=== PATIENT | female | born 1940 | race Caucasian/White ===

== ENCOUNTER 2025-01-05 20:39 | Inpatient (IN) | payer OTHER ==
[~2025-01-05] VITALS: Ht 149.9 cm; Wt 60.2 kg
[2025-01-05 21:27] LABS: Hematocrit 40.7 % (36.0-46.0); Hemoglobin 13.8 g/dL (12.2-16.2); Mean Corpuscular Hemoglobin 31.7 pg (28.0-32.0); Mean Corpuscular Volume 93.8 fL (80.0-100.0); Nucleated Red Blood Cells % 0.1 %
--- NOTE | 2025-01-05 21:28 | ED.PDOC ---
SOB-HPI HPI Comments HPI: 84-year-old female who came to ER via EMS for shortness of breath. Patient has been having flu-like symptoms since June 2024. Has been having productive cough with yellowish sputum, congestion, shortness of breath, on/ off fever. Patient has been given several antibiotic but offered no releif. Patient currently on any antibiotics. Was saturating 89% on room air, with a SBP of 214. Patient states she took her lisinopril today Past Medical History: Hypertension, CVA with right-sided residual Surgical History: Left hip surgery, sleep apnea surgery, tonsillectomy Family History: Denies Personal And Social History: Denies HPI: Poor Historian. Patient is on aspirin. History of strokes. Respiratory symptoms since June of the seizure. Found to be hypoxemic at home 89% at room air. Patient does not use oxygen at home. Past Medical History: Past Surgical History: REVIEW OF SYSTEMS: CONSTITUTIONAL: Denies acute: fever, diaphoresis, chills, generalized weakness. HEAD: Denies acute: headache, photophobia Eyes: Denies acute: Double vision, vision loss, eye pain, eye discharge. EARS: Denies acute: tinnitus, hearing loss, ear discharge, ear pain, THROAT: Denies acute: sore throat, swelling, difficulty swallowing , pain with swallowing, change in voice. NECK: Denies acute: neck pain, neck swelling, stiff neck. HEART: Denies acute : chest pain, palpitations, LUNGS: Denies acute: wheezing, hemoptysis ABDOMEN: Denies acute: abdominal pain, Nausea, Vomiting, diarrhea, melena , hematemesis, hematochezia SKIN: Denies acute: rash, redness, lesions, itchiness. EXTREMITIES: Denies acute: calf pain, numbness, tingling, weakness, denies pain in extremity. Denies acute: Low back pain. Neuro: Denies acute: focal neurological deficit, motor or sensory focal neurological deficit, tremors, seizure like activity, confusion, dizziness, change in mental status, loss of bowel or bladder function, cauda equina like symptoms. : Denies acute: dysuria, hematuria, flank pain, increase in urinary frequency. PSYCH: Denies acute: hallucination, suicidal ideation, homicidal ideation. FEMALE: Denies acute: abnormal vaginal bleeding, foul odor, unusual discharge. PHYSICAL EXAM: General: ----mild----acute distress, awake and alert. Head: normocephalic, atraumatic. No raccoon's eyes, no murray sign. Neck: supple, trachea is midline, no swelling. Throat: Normal phonation. Eyes:, no erythema, no purulent discharge, no proptosis, no icterus. Heart: regular rate, regular rhythm, no significant murmur appreciated. Lungs: no apparent respiratory distress, Able to speak in full sentences. No wheezing, no rhonchi, no crackles. No stridors Clear to auscultation bilaterally. Abdomen: non tender to palpation, non distended, soft, no guarding, no rebound, + bowel sounds. Neuro: Awake, Alert, oriented to name, self, situation, follows commands GCS=15. Speech is normal. Skin: no petechia, no purpura, no cyanosis, non-pale, not jaundice. Lower extremities: --no - Pitting edema no deformity, no focal swelling, no calf TTP. Makes eye contact. moves all four extremities. Face: no apparent facial droop. Ambulating in the ED independently. ED COURSE: DISCLAIMER: This medical document was created using an electronic medical record system with voice recognition software and computerized dictation system. Although this document has been carefully reviewed, there might still be some phonetic and typographical errors. Occasional wrong-word or "sound-alike" substitutions may have occurred due to the inherent limitations of voice recognition software. These areas are purely typographical due to imperfections of the software programs and do not reflect any compromise in the patient's medical care. Please read the chart carefully and recognize, using context, where these substitutions have occurred. 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 Was a procedure done?: No Differential Dx Differential Diagnosis: Asthma, Bronchitis, Pneumonia, Respiratory Distress, Other (DDx include ACS, unstable angina, anxiety, PE, pneumothroax, neoplasm, cardiac ischemia, COPD, asthma, CHF, pleural effusion, tobacco abuse, pneumonia, hypoxia, hypercapnia, anemia., infection/sepsis., pulmonary edema. Asthma, Cardiac tamponade, infection.) X-Ray, Labs, Meds, VS Vital Signs Date Time Temp Pulse Resp B/P (MAP) Pulse Ox O2 Delivery O2 Flow Rate FiO2 01/05/25 23:20 93 Nasal Cannula* 4 36 01/05/25 23:00 72 16 121/88 (99) 99 01/05/25 23:00 97.9 74 18 121/88 99 4.0 97.9 01/05/25 22:51 146/59 01/05/25 21:30 65 17 93 Nasal Cannula* 4 36 01/05/25 21:30 97.7 65 17 166/69 (101) 93 97.7 01/05/25 21:28 72 01/05/25 20:49 72 01/05/25 20:39 97.7 72 98 211/82 98 97.7 Lab Test 01/05/25 22:32 01/05/25 21:52 01/05/25 21:10 Range/Units Influenza Type A Antigen Negative Negative Influenza Type B Antigen Negative Negative SARS-CoV-2 Antigen (Rapid) Negative NEGATIVE Troponin I High Sensitivity 3 L 4 </=34 ng/L White Blood Count 9.3 4.4-10.8 10^3/uL Red Blood Count 4.34 4.0-5.20 10^6/uL Hemoglobin 13.8 12.2-16.2 g/dL Hematocrit 40.7 36.0-46.0 % Mean Corpuscular Volume 93.8 80.0-100.0 fL Mean Corpuscular Hemoglobin 31.7 28.0-32.0 pg Mean Corpuscular Hemoglobin Concent 33.8 32.0-36.0 g/dL Red Cell Distribution Width 12.8 11.8-14.3 % Platelet Count 302 140-450 10^3/uL Mean Platelet Volume 7.2 6.9-10.8 fL Neutrophils (%) (Auto) 69.8 37.0-80.0 % Lymphocytes (%) (Auto) 12.2 10.0-50.0 % Monocytes (%) (Auto) 5.7 0.0-12.0 % Eosinophils (%) (Auto) 11.2 H 0.0-7.0 % Basophils (%) (Auto) 1.1 0.0-2.0 % Neutrophils # (Auto) 6.5 1.6-8.6 10 ^3/uL Lymphocytes # (Auto) 1.1 0.4-5.4 10 ^3/uL Monocytes # (Auto) 0.5 0-1.3 10 ^3/uL Eosinophils # (Auto) 1.0 H 0-0.8 10 ^3/uL Basophils # (Auto) 0.1 0-0.2 10 ^3/uL Nucleated Red Blood Cells 0.1 % D-Dimer, Quantitative 1.15 H 0.0-0.49 mg/L FEU Sodium Level 140 136-145 mmol/L Potassium Level 3.4 L 3.5-5.1 mmol/L Chloride Level 102 98-107 mmol/L Carbon Dioxide Level 28 20-31 mmol/L Anion Gap 10 5-15 Blood Urea Nitrogen 12 9-23 mg/dL Creatinine 0.85 0.550-1.02 mg/dL Glomerular Filtration Rate Calc 68 >90 mL/min BUN/Creatinine Ratio 14.1 10.0-20.0 Serum Glucose 102 74-106 mg/dL Lactic Acid Level 0.8 0.4-2.0 mmol/L Calcium Level 9.2 8.7-10.4 mg/dL Total Bilirubin 0.4 0.2-1.0 mg/dL Aspartate Amino Transferase (AST) 26 13-40 U/L Alanine Aminotransferase (ALT) 23 7-40 U/L Alkaline Phosphatase 96 46-116 U/L B-Type Natriuretic Peptide 35.86 0-100 pg/mL Total Protein 7.3 5.7-8.2 g/dL Albumin 4.3 3.2-4.8 g/dL Current Medications Medications (Trade) Dose Ordered Sig/Kai Route Start Time Stop Time Status Last Admin Ceftriaxone Sodium 50 ml @ 100 mls/hr ONCE ONCE IV 01/05/25 22:15 01/05/25 22:44 DC 01/05/25 22:57 Aspirin 162 mg ONCE ONCE PO 01/06/25 00:45 01/06/25 00:54 DC 01/06/25 01:37 Potassium Chloride (Klor-Con Tablet) 20 meq ONCE ONCE PO 01/06/25 00:45 01/06/25 00:54 DC 01/06/25 01:[address] [address] Ph: [phone] DIAGNOSTIC IMAGING Diagnostic Imaging Report : [id number] Signed PATIENT: CAIN JONES ACCT: [id number] UNIT: [id number] : 1940 LOC: ER ROOM / BED: / AGE / SEX: 84 / F ADM STATUS: REG ER SERVICE 04 ORDERING PHYSICIAN: BRITNEY SHAY DO PROCEDURE(s): CXRP - CHEST PORTABLE REASON: sob ORDER NUMBER(s): [id number], ACCESSION NUMBER(s): [id number] CHEST RADIOGRAPH Indication: sob Technique: Single frontal view of the chest was obtained COMPARISON: None FINDINGS: Lungs and pleural spaces are clear apart from mild bibasilar atelectasis. Cardiac silhouette and smith are within normal limits. Bones and soft tissues demonstrate no significant abnormality. IMPRESSION: No acute disease. ATED BY: CRUZ JONES MD DICTATED DATE/TIME: 01/05/252251 SIGNED BY: CRUZ JONES MD SIGNED DATE/TIME: 01/05/252251 CC: [place] [id number] Ph: [phone] DIAGNOSTIC IMAGING Diagnostic Imaging Report : [id number] Signed PATIENT: CAIN JONES ACCT: [id number] UNIT: [id number] : 1940 LOC: OVERFLOW ROOM / BED: 1016-ERT / A AGE / SEX: 84 / F ADM STATUS: ADM IN SERVICE 2356 ORDERING PHYSICIAN: BRITNEY SHAY DO PROCEDURE(s): CTACH - CT ANGIO CHEST CONTRAST REASON: sob/cough ORDER NUMBER(s): [id number], ACCESSION NUMBER(s): [id number] CTA Chest with intravenous contrast INDICATION: sob/cough COMPARISON: XY CHEST PORTABLE on DOS: 01/05/25 TECHNIQUE: Multidetector spiral CTA of the chest was performed of the chest with intravenous contrast. PULMONARY ANGIOGRAPHY PROTOCOL was utilized using a bolus- tracking technique centered on the main pulmonary artery. Axial, coronal and sagittal multiplanar and MIP reformats were performed. Radiation Dose : 1. Chest: CTDI volume is 17.74 mGy. Dose-length product is 478.21 mGy*cm The dose indicators for CT are the volume Computed Tomography (CT) Dose Index (CTDIvol) and the Dose Length Product (DLP), and are measured in units of mGy and mGy-cm, respectively. These indicators are not patient dose, but values generated from the CT scanner acquisition factors. The report includes radiation exposure data for exposures received during this examination. Findings: Pulmonary artery: No pulmonary embolism Lower neck: Normal thyroid. Lungs: No focal consolidation, pleural effusion or pneumothorax. Mild diffuse interlobular septal thickening with hazy ground-glass opacity throughout both lungs. Heart/Vascular Structures: Normal heart size. No pericardial effusion. Coronary calcifications. Lymph Nodes: No adenopathy Pleura: No pleural effusion or significant pneumothorax. Musculoskeletal: No acute osseous abnormality. Soft tissues: Normal. Upper abdomen: Limited portions of the upper abdomen are unremarkable. Previous cholecystectomy. IMPRESSION: No pulmonary embolism. Mild fluid overload. ATED BY: CRUZ JONES MD DICTATED DATE/TIME: 01/06/25131 SIGNED BY: CRUZ JONES MD SIGNED DATE/TIME: 01/06/25131 CC: Time of 1ST Reevaluation: 21:24 Reevaluation 1ST: Unchanged Patient Education/Counseling: Diagnosis, Treatment Family Education/Counseling: No Family Present Comments MDM: patient presented with the above HPI.---dyspnea---workup was initiated. patient was found with the above mentioned diagnosis. the following medications were ordered: please refer to order lists of meds and tests obtained by myself Dr. Shay. Patient ED course and VS have been stabilized. Patient has been reassessed in the ED and remained in a stable condition. Pertinent incidental findings were discussed with the patient and/or family. Patient/family voices understanding and is agreeable with plan. Patient has been observed in the ED adequate length of time to insure improvement/stability. Escalation of care considered: Consideration of escalation to observation or admission Rule out ACS. Rule out PE. Rule out infection Patient was ADMITTED to the medicine team for further evaluation and treatment of their presentation. All the reports of any imaging studies that were ordered by myself were reviewed by myself. SEPSIS Sepsis Screen Date sepsis recognized/suspect: Jan 05, 2025 Time Sepsis recognized/suspect: 2038 Recent Procedure: No On Antibiotic Therapy: No Respiratory Rate >20: No Heart Rate >90: No Temp<36 C (96.8 F) or >38.3 C: No SBP <90 or MAP <65 mmHG: No New Acute Mental Status Change: No Is the patient on CPAP, BIPAP,: No Physician Orders Electrocardigram (01/05/25 20:59) Bailer Operators Supervisor (01/05/25 ) Urinalysis (01/05/25 21:05) Chest Portable (01/05/25 21:05) Ct Angio Chest Contrast (01/05/25 23:56) Complete Blood Count (01/06/25 04:00) Comprehensive Metabolic Panel (01/06/25 04:00) Aspirin Tablet (01/06/25 10:00) Albuterol Medneb (Ventolin Medneb) (01/06/25 00:45) Ipratropium Medneb (Atrovent Medneb) (01/06/25 00:45) Hydralazine Injection (Apresoline Inject (01/06/25 00:45) Allergies (01/06/25 00:44) Code Status (01/06/25 00:44) Sodium Chloride Lock (Saline Lock Ns) (01/06/25 06:00) Oxygen Per Hour (01/06/25 00:44) Hydrocodone-Acet 5/325mg Tab ([place] 5/32 (01/06/25 00:45) Ondansetron Hcl (Zofran) (01/06/25 00:45) Docusate Sodium Capsule (Colace Capsule) (01/06/25 00:45) Fall Risk Precautions In Place QSHIFT (01/06/25 00:44) Complete Blood Count (01/07/25 04:00) Comprehensive Metabolic Panel (01/07/25 04:00) Cardiac Diet-2gna,Lofat,Lochol (01/06/25 Breakfast) Condition: Serious (01/06/25 00:44) Acetaminophen Tablet (Tylenol Tablet) (01/06/25 00:45) Maintain Bed Rest (01/06/25 00:44) Sequential Compression Device (01/06/25 ) Vital Signs Date Time Temp Pulse Resp B/P (MAP) Pulse Ox O2 Delivery O2 Flow Rate FiO2 01/05/25 23:20 93 Nasal Cannula* 4 36 01/05/25 23:00 72 16 121/88 (99) 99 01/05/25 23:00 97.9 74 18 121/88 99 4.0 97.9 01/05/25 22:51 146/59 01/05/25 21:30 65 17 93 Nasal Cannula* 4 36 01/05/25 21:30 97.7 65 17 166/69 (101) 93 97.7 01/05/25 21:28 72 01/05/25 20:49 72 01/05/25 20:39 97.7 72 98 211/82 98 97.7 Laboratory Tests Test 01/05/25 21:10 Lactic Acid Level 0.8 mmol/L (0.4-2.0) White Blood Count 9.3 10^3/uL (4.4-10.8) Medications Medications Dose Ordered Sig/Kai Route Start Time Stop Time Status Last Admin Dose Admin Aspirin 162 mg ONCE ONCE PO 01/06/25 00:45 01/06/25 00:54 DC 01/06/25 01:37 Ceftriaxone Sodium 50 ml @ 100 mls/hr ONCE ONCE IV 01/05/25 22:15 01/05/25 22:44 DC 01/05/25 22:57 Potassium Chloride 20 meq ONCE ONCE PO 01/06/25 00:45 01/06/25 00:54 DC 01/06/25 01:37 Departure 1 Departure Time of Disposition: 22:06 Impression: Primary Impression: Hypoxemia Additional Impressions: Acute respiratory distress URI (upper respiratory infection) Hypertensive crisis Disposition: ADMITTED INPATIENT Admit to: Tele Condition: Guarded Discharged With: Self Critical Care Note Critical Care Time?: Yes (35 min-critical care time only) Stability Stability form required: No Heart Score Heart Score: Heart Score Response (Comments) Value History Moderate Suspicious 1 EKG Normal 0 Age >65 2 Risk Factors 1 or 2 risk factors 1 Troponin Normal limit 0 Total 4 I personally scribed for BRITNEY SHAY DO ([email or web address]) on 01/05/25 at 21:28. Electronically submitted by Kyle Betancourt ([email or web address]). I personally scribed for BRITNEY SHAY DO ([email or web address]) on 01/05/25 at 23:41. Electronically submitted by Kyle Betancourt ([email or web address]). I personally scribed for BRITNEY SHAY DO ([email or web address]) on 01/06/25 at 02:09. Electronically submitted by Kyle Betancourt ([email or web address]). BRITNEY SHAY DO Jan 05, 2025 21:28
[2025-01-05 21:30] VITALS: PULSE 65; RESP 17; O2SAT 93
[2025-01-05 21:39] LABS: Alanine Aminotransferase 23 U/L (7-40); Albumin 4.3 g/dL (3.2-4.8); Alkaline Phosphatase 96 U/L (46-116); Anion Gap 10 (5-15); BUN/Creatinine Ratio 14.1 (10.0-20.0); Bilirubin, Total 0.4 mg/dL (0.2-1.0); Blood Urea Nitrogen 12 mg/dL (9-23); Calcium 9.2 mg/dL (8.7-10.4); Carbon Dioxide 28 mmol/L (20-31); Chloride 102 mmol/L (98-107); Glucose 102 mg/dL (74-106); Potassium 3.4 mmol/L (3.5-5.1); Sodium 140 mmol/L (136-145); Total Protein 7.3 g/dL (5.7-8.2)
[2025-01-05] MEDS: hydrALAZINE HCL 20 MG/ML VL IV ONE (22:51)
--- NOTE | 2025-01-05 22:54 | DVH ---
CHEST RADIOGRAPH Indication: sob Technique: Single frontal view of the chest was obtained COMPARISON: None FINDINGS: Lungs and pleural spaces are clear apart from mild bibasilar atelectasis. Cardiac silhouette and smith are within normal limits. Bones and soft tissues demonstrate no significant abnormality. IMPRESSION: No acute disease.
[2025-01-05 23:00] VITALS: BP 121/88; PULSE 74; RESP 18; TEMP 97.9; O2SAT 99
[2025-01-05 23:16] LABS: COVID19 ANTIGEN SOFIA FIA NEGATIVE (NEGATIVE)
[2025-01-05 23:20] VITALS: PULSE 65; RESP 17; O2SAT 93
[2025-01-06] VITALS (10 sets, daily range): BP systolic 129–178; BP diastolic 58–96; PULSE 66–101; RESP 16–20; TEMP 97.7–98.4; O2SAT 95–100
[2025-01-06] MEDS ORDERED: ACETAMINOPHEN 325 MG TAB PO PRN (00:45)
[2025-01-06] MEDS ORDERED: ONDANSETRON HCL 4 MG/2 ML VIAL IV PRN (00:45)
--- NOTE | 2025-01-06 00:52 | DVHHP2 ---
History of Present Illness Reason for Visit: Acute respiratory distress History of Present Illness The patient is a 84-year-old female with past medical history of hypertension and CVA with left-sided residual presented to [facility] ED with complaint of shortness of breaths. As reported, patient has been having flu-like symptoms since June 2024. Patient continued to feel symptoms today associated with productive cough with yellowish sputum, congestion, shortness of breath, and intermittent fever. Patient has been given several antibiotic but with no relief. Patient was seen and evaluated in the ED, laboratory data shows WBC 9.3, platelets 302, sodium 140, potassium 3.4, BUN 12, creatinine 0.85, GFR 68, glucose 102, calcium 9.2, troponin 4, BNP 35.86, D-dimer 1.15, blood pressure 211/82 trending down to 146/59, heart rate 72, temperature 97.7 F, O2 saturation 93% on oxygen. CT angiography revealing mild fluid overload, no pulmonary embolism. Please see medication orders section in the computer. On my assessment, patient denied chest pain, no headache, dizziness, diaphoresis, currently on oxygen, no diarrhea, nausea, vomiting, fever, no chills. Patient was admitted for further evaluation and medical management. Past Medical History Hypertension, CVA, Past Surgical History Tonsillectomy, Left hip surgery, sleep apnea surgery Family History Reviewed, noncontributory to the management of this case. Past Social History The patient lives at home, denies smoking, alcohol or illicit drugs abuse. Review of Systems Constitutional: Yes: Weakness; No: Fever, Chills, Sweats, Malaise, Other Eyes: No: Pain, Vision change, Conjunctivae inflammation, Eyelid inflammation, Other, Redness ENT: No: Ear pain, Ear discharge, Nose pain, Nose discharge, Nose congestion, Mouth pain, Mouth swelling, Throat pain, Throat swelling, Other Respiratory: Shortness of breath; No: Cough, Dry, SOB with excertion, Wheezing, Hemoptysis, Pleuritic Pain, Sputum, Wheezing, Other Cardiovascular: No: Chest Pain, Palpitations, Orthopnea, Paroxysmal Noc. Dyspnea, Edema, Lt Headedness, Other Gastrointestinal: No: Nausea, Vomiting, Abdominal Pain, Diarrhea, Constipation, Melena, Hematochezia, Other Genitourinary: No Dysuria, No Frequency, No Incontinence, No Hematuria, No Retention, No Other Musculoskeletal: No: other, neck pain, shoulder pain, arm pain, back pain, hand pain, leg pain, foot pain Skin: No: Rash, Lesions, Jaundice, Bruising, Other Neurological: No: Weakness, Numbness, Incoordination, Change in speech, Confusion, Seizures, Other Allergies: Coded Allergies: Sulfa Antibiotics (Verified Allergy, Unknown, 01/05/25) Medications Current Medications Medications Dose Ordered Sig/Kai Route Start Time Stop Time Status Last Admin Dose Admin Aspirin 81 mg DAILY PO 01/06/25 10:00 UNV Albuterol 2.5 mg Q4HPRN PRN NEB 01/06/25 00:45 UNV Ipratropium [place] 0.5 mg Q4HPRN PRN NEB 01/06/25 00:45 UNV Hydralazine HCl 10 mg Q6HP PRN IV 01/06/25 00:45 UNV Sodium Chloride 10 ml Q8HR IV 01/06/25 06:00 UNV Acetaminophen/ Hydrocodone Bitart 1 tab Q4HP PRN PO 01/06/25 00:45 UNV Ondansetron HCl 4 mg Q4HP PRN IV 01/06/25 00:45 UNV Docusate Sodium 100 mg BIDPRN PRN PO 01/06/25 00:45 UNV Acetaminophen 650 mg Q6HP PRN PO 01/06/25 00:45 UNV Exam Vital Signs Vital Signs Date Time Temp Pulse Resp B/P (MAP) Pulse Ox O2 Delivery O2 Flow Rate FiO2 01/05/25 23:20 93 Nasal Cannula* 4 36 01/05/25 23:00 72 16 121/88 (99) 01/05/25 21:30 97.7 97.7 General Appearance: Alert, Oriented X3, Cooperative, No acute distress HEENT: Atraumatic, PERRLA, EOMI, Mucous membr. moist/pink Respiratory: Normal air movement Cardiovascular: Regular rate, Normal S1, Normal S2, No murmurs Abdominal: Normal bowel sounds, Soft, No tenderness, No hepatospenomegaly, No masses Extremities: No clubbing, No cyanosis, No edema, Normal pulses, No tenderness/swelling Skin: No rashes, No significant lesion Neuro: Normal speech, Normal tone, Sensation intact, Cranial nerves 3-12 NL, Reflexes 2+, Other (Generalized weakness) Psych/Mental Status: Mental status NL, Mood NL Labs/Xrays Labs Test 01/05/25 22:32 01/05/25 21:52 01/05/25 21:10 Range/Units Influenza Type A Antigen Negative Negative Influenza Type B Antigen Negative Negative SARS-CoV-2 Antigen (Rapid) Negative NEGATIVE Troponin I High Sensitivity 3 L </=34 ng/L White Blood Count 9.3 4.4-10.8 10^3/uL Red Blood Count 4.34 4.0-5.20 10^6/uL Hemoglobin 13.8 12.2-16.2 g/dL Hematocrit 40.7 36.0-46.0 % Mean Corpuscular Volume 93.8 80.0-100.0 fL Mean Corpuscular Hemoglobin 31.7 28.0-32.0 pg Mean Corpuscular Hemoglobin Concent 33.8 32.0-36.0 g/dL Red Cell Distribution Width 12.8 11.8-14.3 % Platelet Count 302 140-450 10^3/uL Mean Platelet Volume 7.2 6.9-10.8 fL Neutrophils (%) (Auto) 69.8 37.0-80.0 % Lymphocytes (%) (Auto) 12.2 10.0-50.0 % Monocytes (%) (Auto) 5.7 0.0-12.0 % Eosinophils (%) (Auto) 11.2 H 0.0-7.0 % Basophils (%) (Auto) 1.1 0.0-2.0 % Neutrophils # (Auto) 6.5 1.6-8.6 10 ^3/uL Lymphocytes # (Auto) 1.1 0.4-5.4 10 ^3/uL Monocytes # (Auto) 0.5 0-1.3 10 ^3/uL Eosinophils # (Auto) 1.0 H 0-0.8 10 ^3/uL Basophils # (Auto) 0.1 0-0.2 10 ^3/uL Nucleated Red Blood Cells 0.1 % D-Dimer, Quantitative 1.15 H 0.0-0.49 mg/L FEU Sodium Level 140 136-145 mmol/L Potassium Level 3.4 L 3.5-5.1 mmol/L Chloride Level 102 98-107 mmol/L Carbon Dioxide Level 28 20-31 mmol/L Anion Gap 10 5-15 Blood Urea Nitrogen 12 9-23 mg/dL Creatinine 0.85 0.550-1.02 mg/dL Glomerular Filtration Rate Calc 68 >90 mL/min BUN/Creatinine Ratio 14.1 10.0-20.0 Serum Glucose 102 74-106 mg/dL Lactic Acid Level 0.8 0.4-2.0 mmol/L Calcium Level 9.2 8.7-10.4 mg/dL Total Bilirubin 0.4 0.2-1.0 mg/dL Aspartate Amino Transferase (AST) 26 13-40 U/L Alanine Aminotransferase (ALT) 23 7-40 U/L Alkaline Phosphatase 96 46-116 U/L B-Type Natriuretic Peptide 35.86 0-100 pg/mL Total Protein 7.3 5.7-8.2 g/dL Albumin 4.3 3.2-4.8 g/dL PATIENT: CAIN JONES ACCT: [id number] UNIT: [id number] : 1940 LOC: OVERFLOW ROOM / BED: [address] [place] [address] AGE / SEX: 84 / F ADM STATUS: ADM IN SERVICE [id number] ORDERING PHYSICIAN: BRITNEY SHAY DO PROCEDURE(s): CTACH - CT ANGIO CHEST CONTRAST REASON: sob/cough ORDER NUMBER(s): [id number], ACCESSION NUMBER(s): [id number] CTA Chest with intravenous contrast INDICATION: sob/cough COMPARISON: XY CHEST PORTABLE on DOS: 01/05/25 TECHNIQUE: Multidetector spiral CTA of the chest was performed of the chest with intravenous contrast. PULMONARY ANGIOGRAPHY PROTOCOL was utilized using a bolus- tracking technique centered on the main pulmonary artery. Axial, coronal and sagittal multiplanar and MIP reformats were performed. Radiation Dose: 1. Chest: CTDI volume is 17.74 mGy. Dose-length product is 478.21 mGy*cm The dose indicators for CT are the volume Computed Tomography (CT) Dose Index (CTDIvol) and the Dose Length Product (DLP), and are measured in units of mGy and mGy-cm, respectively. These indicators are not patient dose, but values generated from the CT scanner acquisition factors. The report includes radiation exposure data for exposures received during this examination. Findings: Pulmonary artery: No pulmonary embolism Lower neck: Normal thyroid. Lungs: No focal consolidation, pleural effusion or pneumothorax. Mild diffuse interlobular septal thickening with hazy ground-glass opacity throughout both lungs. Heart/Vascular Structures: Normal heart size. No pericardial effusion. Coronary calcifications. Lymph Nodes: No adenopathy Pleura: No pleural effusion or significant pneumothorax. Musculoskeletal: No acute osseous abnormality. Soft tissues: Normal. Upper abdomen: Limited portions of the upper abdomen are unremarkable. Previous cholecystectomy. IMPRESSION: No pulmonary embolism. Mild fluid overload. ORDERING PHYSICIAN: BRITNEY SHAY DO PROCEDURE(s): CXRP - CHEST PORTABLE REASON: sob ORDER NUMBER(s): [id number], ACCESSION NUMBER(s): [id number] CHEST RADIOGRAPH Indication: sob Technique: Single frontal view of the chest was obtained COMPARISON: None FINDINGS: Lungs and pleural spaces are clear apart from mild bibasilar atelectasis. Cardiac silhouette and smith are within normal limits. Bones and soft tissues demonstrate no significant abnormality. IMPRESSION: No acute disease. SEPSIS Sepsis Screen Date sepsis recognized/suspect: Jan 05, 2025 Time Sepsis recognized/suspect: 2129 Recent Procedure: No On Antibiotic Therapy: No Respiratory Rate >20: No Heart Rate >90: No Temp<36 C (96.8 F) or >38.3 C: No SBP <90 or MAP <65 mmHG: No New Acute Mental Status Change: No Is the patient on CPAP, BIPAP,: No Physician Orders Electrocardigram (01/05/25 20:59) Elderly Companion (01/05/25 ) Urinalysis (01/05/25 21:05) Chest Portable (01/05/25 21:05) Ct Angio Chest Contrast (01/05/25 23:56) Complete Blood Count (01/06/25 04:00) Comprehensive Metabolic Panel (01/06/25 04:00) Aspirin Tablet (01/06/25 10:00) Aspirin Tablet (01/06/25 00:45) Potassium Er Tablet (Klor-Con Tablet) (01/06/25 00:45) Albuterol Medneb (Ventolin Medneb) (01/06/25 00:45) Ipratropium Medneb (Atrovent Medneb) (01/06/25 00:45) Hydralazine Injection (Apresoline Inject (01/06/25 00:45) Allergies (01/06/25 00:44) Code Status (01/06/25 00:44) Sodium Chloride Lock (Saline Lock Ns) (01/06/25 06:00) Oxygen Per Hour (01/06/25 00:44) Hydrocodone-Acet 5/325mg Tab (Jay 5/32 (01/06/25 00:45) Ondansetron Hcl (Zofran) (01/06/25 00:45) Docusate Sodium Capsule (Colace Capsule) (01/06/25 00:45) Fall Risk Precautions In Place QSHIFT (01/06/25 00:44) Complete Blood Count (01/07/25 04:00) Comprehensive Metabolic Panel (01/07/25 04:00) Cardiac Diet-2gna,Lofat,Lochol (01/06/25 Breakfast) Condition: Serious (01/06/25 00:44) Acetaminophen Tablet (Tylenol Tablet) (01/06/25 00:45) Maintain Bed Rest (01/06/25 00:44) Sequential Compression Device (01/06/25 ) Admit (01/06/25 00:50) Nitroglycerin Sublingual (Ntrostat Subli (01/06/25 01:00) Morphine Sulfate Injection (01/06/25 01:00) Stat Ekg For Chest Pain (01/06/25 00:50) Notify Md Of Changes From Base (01/06/25 00:50) Director Of Rotc For 24 Hours (01/06/25 00:50) Emergency Dysrhythmia Protocol (01/06/25 00:50) Rhythm Strips Once Every Shift (01/06/25 00:50) Oxygen By Nasal Cannula (01/06/25 00:50) Vital Signs Date Time Temp Pulse Resp B/P (MAP) Pulse Ox O2 Delivery O2 Flow Rate FiO2 01/05/25 23:20 93 Nasal Cannula* 4 36 01/05/25 23:00 72 16 121/88 (99) 99 01/05/25 22:51 146/59 01/05/25 21:30 65 17 93 Nasal Cannula* 4 36 01/05/25 21:30 97.7 65 17 166/69 (101) 93 97.7 01/05/25 21:28 72 01/05/25 20:49 72 01/05/25 20:39 97.7 72 98 211/82 98 97.7 Laboratory Tests Test 01/05/25 21:10 Lactic Acid Level 0.8 mmol/L (0.4-2.0) White Blood Count 9.3 10^3/uL (4.4-10.8) Medications Medications Dose Ordered Sig/Kai Route Start Time Stop Time Status Last Admin Dose Admin Ceftriaxone Sodium 50 ml @ 100 mls/hr ONCE ONCE IV 01/05/25 22:15 01/05/25 22:44 DC 01/05/25 22:57 100 MLS/HR Assessment/Plan Assessment/Plan Acute respiratory distress Hypoxemia Hypertensive crisis URI (upper respiratory infection) Generalized weakness Plan 1. Admit to telemetry unit 2. Breathing treatment 3. Pain control management 4. IV antibiotic management 5. Management of fluids and electrolytes 6. Consultation for hospitalist 7. Diagnostic test CT angiography 8. DVT prophylaxis-on SCDs 9. Repeat labs CBC, CMP in a.m. 10. Home medication reviewed and reconciled 11. Continue with current medical management 12. Treatment plan discussed with patient and RN. Patient verbalized understanding. Plan discussed with: Patient, Other (RN) My Orders Orders - ILENE MARTINEZ DNP Procedure Category Date Status Time Complete Blood Count LAB 01/06/25 Logged 04:00 Comprehensive LAB 01/06/25 Logged Metabolic Panel 04:00 Aspirin Tablet PHA 01/06/25 Logged 10:00 Aspirin Tablet PHA 01/06/25 Logged 00:45 Potassium Er Tablet PHA 01/06/25 Logged (Klor-Con Tablet) 00:45 Albuterol Medneb PHA 01/06/25 Logged (Ventolin Medneb) 00:45 Ipratropium Medneb PHA 01/06/25 Logged (Atrovent Medneb) 00:45 Hydralazine Injection PHA 01/06/25 Logged (Apresoline Inject 00:45 Allergies FABRICE 01/06/25 In Process 00:44 Code Status CODE 01/06/25 Transmitted 00:44 Sodium Chloride Lock PHA 01/06/25 Logged (Saline Lock Ns) 06:00 Oxygen Per Hour RT 01/06/25 Transmitted 00:44 Hydrocodone-Acet PHA 01/06/25 Logged 5/325mg Tab (Jay 00:45 Ondansetron Hcl PHA 01/06/25 Logged (Zofran) 00:45 Docusate Sodium PHA 01/06/25 Logged Capsule (Colace 00:45 Fall Risk Precautions [facility] 01/06/[address] 00:44 Complete Blood Count LAB 01/07/25 Verified 04:00 Comprehensive LAB 01/07/25 Verified Metabolic Panel 04:00 Cardiac DIET 01/06/25 Transmitted Diet-2gna,Lofat,Lochol Breakfast Condition: Serious [facility] 01/06/25 In Process 00:44 Acetaminophen Tablet [facility] 01/06/25 Logged (Tylenol Tablet) 00:45 Maintain Bed Rest [facility] 01/06/25 In Process 00:44 Sequential [facility] 01/06/25 In Process Compression Device Admit ADMIT 01/06/25 Verified 00:50 Nitroglycerin [facility] 01/06/25 Verified Sublingual (Ntrostat 01:00 Morphine Sulfate [facility] 01/06/25 Verified Injection 01:00 Stat Ekg For Chest [facility] 01/06/25 Verified Pain 00:50 Notify Md Of Changes [facility] 01/06/25 Verified From Base 00:50 Director Of Rotc For [facility] 01/06/25 Verified 24 Hours 00:50 Emergency Dysrhythmia [facility] 01/06/25 Verified Protocol 00:50 Rhythm Strips Once [facility] 01/06/25 Verified Every Shift 00:50 Oxygen By Nasal RT 01/06/25 Verified Cannula 00:50 Problem List: (1) Acute respiratory distress (2) Hypoxemia (3) Hypertensive crisis (4) URI (upper respiratory infection) (5) Generalized weakness Date of Service: Jan 06, 2025 Billing Provider: ILENE MARTINEZ DNP Common Visit Codes: [id number] INP/OBS CARE (HIGH) ILENE MARTINEZ DNP Jan 06, 2025 00:52
[2025-01-06] MEDS ORDERED: NITROGLYCERIN 0.4 MG SL TAB SL PRN (01:00)
[2025-01-06] MEDS ORDERED: MORPHINE SULFATE INJ 2 MG/ml SYRG IV PRN (01:00)
[2025-01-06] MEDS: IOHEXOL 350 MG/ML 100ML IJ ONE (01:07)
--- NOTE | 2025-01-06 01:35 | DVH ---
CTA Chest with intravenous contrast INDICATION: sob/cough COMPARISON: XY CHEST PORTABLE on DOS: 01/05/25 TECHNIQUE: Multidetector spiral CTA of the chest was performed of the chest with intravenous contrast. PULMONARY ANGIOGRAPHY PROTOCOL was utilized using a bolus- tracking technique centered on the main pulmonary artery. Axial, coronal and sagittal multiplanar and MIP reformats were performed. Radiation Dose : 1. Chest: CTDI volume is 17.74 mGy. Dose-length product is 478.21 mGy*cm The dose indicators for CT are the volume Computed Tomography (CT) Dose Index (CTDIvol) and the Dose Length Product (DLP), and are measured in units of mGy and mGy-cm, respectively. These indicators are not patient dose, but values generated from the CT scanner acquisition factors. The report includes radiation exposure data for exposures received during this examination. Findings: Pulmonary artery: No pulmonary embolism Lower neck: Normal thyroid. Lungs: No focal consolidation, pleural effusion or pneumothorax. Mild diffuse interlobular septal thickening with hazy ground-glass opacity throughout both lungs. Heart/Vascular Structures: Normal heart size. No pericardial effusion. Coronary calcifications. Lymph Nodes: No adenopathy Pleura: No pleural effusion or significant pneumothorax. Musculoskeletal: No acute osseous abnormality. Soft tissues: Normal. Upper abdomen: Limited portions of the upper abdomen are unremarkable. Previous cholecystectomy. IMPRESSION: No pulmonary embolism. Mild fluid overload.
[2025-01-06] MEDS: POTASSIUM CHL 20 Meq TABLET PO ONE (01:37)
[2025-01-06 04:25] LABS: Hematocrit 37.6 % (36.0-46.0); Hemoglobin 13.0 g/dL (12.2-16.2); Mean Corpuscular Hemoglobin 32.0 pg (28.0-32.0); Mean Corpuscular Volume 92.8 fL (80.0-100.0); Nucleated Red Blood Cells % 0.1 %
[2025-01-06 04:45] LABS: Alanine Aminotransferase 18 U/L (7-40); Albumin 3.7 g/dL (3.2-4.8); Alkaline Phosphatase 86 U/L (46-116); Anion Gap 9 (5-15); BUN/Creatinine Ratio 12.3 (10.0-20.0); Blood Urea Nitrogen 10 mg/dL (9-23); Calcium 8.9 mg/dL (8.7-10.4); Carbon Dioxide 27 mmol/L (20-31); Chloride 102 mmol/L (98-107); Glucose 91 mg/dL (74-106); Sodium 138 mmol/L (136-145); Total Protein 6.3 g/dL (5.7-8.2)
[2025-01-06 04:46] LABS: Bilirubin, Total 0.5 mg/dL (0.2-1.0)
[2025-01-06 04:54] LABS: Potassium 3.4 mmol/L (3.5-5.1)
[2025-01-06] MEDS: hydrALAZINE HCL 20 MG/ML VL IV PRN (06:07)
[2025-01-06] MEDS: SODIUM CHLOR 0.9% PF (SALINE LOCK) 10ML VIAL/SYR IV SCH (06:07)
[2025-01-06] MEDS: ALBUTEROL SULF 2.5 MG/0.5ML(0.5%) NEB SOLN NEB PRN (06:29)
[2025-01-06] MEDS: IPRATROPIUM BROM 0.5 MG/2.5ML INH SOL NEB PRN (06:29)
[2025-01-06] MEDS ORDERED: ASPI-543 PO (06:43)
[2025-01-06] MEDS ORDERED: LISIPOW XX (06:43)
--- NOTE | 2025-01-06 06:54 | ECG ---
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
[2025-01-06] MEDS ORDERED: LISI10TA34 PO (10:36)
--- NOTE | 2025-01-06 16:11 | DVHPN2 ---
Eyes: No Pain, No Vision change, No Conjunctivae inflammation, No Eyelid inflammation, No Other, No Redness ENT: No Ear pain, No Ear discharge, No Nose pain, No Nose discharge, No Nose congestion, No Mouth pain, No Mouth swelling, No Throat pain, No Throat swelling, No Other Cardiovascular: No Chest Pain, No Palpitations, No Orthopnea, No Paroxysmal Noc. Dyspnea, No Edema, No Lt Headedness, No Other Respiratory: No Cough, No Dry; Shortness of breath; No SOB with excertion, No Wheezing, No Hemoptysis, No Pleuritic Pain, No Sputum, No Other Gastrointestinal: No Nausea, No Vomiting, No Abdominal Pain, No Diarrhea, No Constipation, No Melena, No Hematochezia, No Other Genitourinary: No Dysuria, No Frequency, No Incontinence, No Hematuria, No Retention, No Other Musculoskeletal: No other, No neck pain, No shoulder pain, No arm pain, No back pain, No hand pain, No leg pain, No foot pain Skin: No Rash, No Lesions, No Jaundice, No Bruising, No Other Objective Vitals Vital Signs Date Time Temp Pulse Resp B/P (MAP) Pulse Ox O2 Delivery O2 Flow Rate FiO2 01/06/25 13:00 97.8 78 18 140/75 (96) 100 97.8 01/06/25 10:00 Nasal Cannula 4.0 01/06/25 10:00 36 Intake/Output Intake and Output 01/06/25 07:00 Intake Total 50 ml Balance 50 ml Intake IV Total 50 ml Medications Current Medications Medications Dose Ordered Sig/Kai Route Start Time Stop Time Status Last Admin Dose Admin Aspirin 81 mg DAILY PO 01/06/25 10:00 01/06/25 10:46 81 MG Albuterol 2.5 mg Q4HPRN PRN NEB 01/06/25 00:45 01/06/25 06:29 2.5 MG Ipratropium [place] 0.5 mg Q4HPRN PRN NEB 01/06/25 00:45 01/06/25 06:29 0.5 MG Hydralazine HCl 10 mg Q6HP PRN IV 01/06/25 00:45 01/06/25 06:07 10 MG Sodium Chloride 10 ml Q8HR IV 01/06/25 06:00 01/06/25 06:07 10 ML Acetaminophen/ Hydrocodone Bitart 1 tab Q4HP PRN PO 01/06/25 00:45 Ondansetron HCl 4 mg Q4HP PRN IV 01/06/25 00:45 Docusate Sodium 100 mg BIDPRN PRN PO 01/06/25 00:45 Acetaminophen 650 mg Q6HP PRN PO 01/06/25 00:45 Nitroglycerin 0.4 mg Q5MINP PRN SL 01/06/25 01:00 Morphine Sulfate 2 mg Q30M PRN IV 01/06/25 01:00 Ceftriaxone Sodium 50 ml @ 100 mls/hr DAILY@2100 IV 01/06/25 21:00 Laboratory Results Laboratory Tests 01/06/25 03:36 Chemistry Test 01/05/25 21:10 01/06/25 03:36 Albumin 4.3 g/dL (3.2-4.8) 3.7 g/dL (3.2-4.8) Calcium Level 9.2 mg/dL (8.7-10.4) 8.9 mg/dL (8.7-10.4) Total Protein 7.3 g/dL (5.7-8.2) 6.3 g/dL (5.7-8.2) Coagulation Test 01/05/25 21:10 D-Dimer, Quantitative 1.15 mg/L FEU (0.0-0.49) H Cardiac Markers Test 01/05/25 21:10 B-Type Natriuretic Peptide 35.86 pg/mL (0-100) LFT Test 01/05/25 21:10 01/06/25 03:36 Alanine Aminotransferase (ALT) 23 U/L (7-40) 18 U/L (7-40) Alkaline Phosphatase 96 U/L (46-116) 86 U/L (46-116) Aspartate Amino Transferase (AST) 26 U/L (13-40) 20 U/L (13-40) Total Bilirubin 0.4 mg/dL (0.2-1.0) 0.5 mg/dL (0.2-1.0) Assessment/Plan My Orders Orders - JACOBO CORONEL MD Procedure Category Date Status Time Echo 2d Mode Cardiac US 01/06/25 Logged DOP 15:44 JACOBO CORONEL MD Jan 06, 2025 16:11
[2025-01-06 22:48] LABS: Urine Protein, UAD Negative (Negative)
[2025-01-07] VITALS (13 sets, daily range): BP systolic 106–157; BP diastolic 61–84; PULSE 68–110; RESP 16–20; TEMP 97.6–98.8; O2SAT 93–100
[2025-01-07] MEDS: HYDROcodone-ACET 5/325MG TAB PO PRN (00:55)
[2025-01-07 06:25] LABS: Hematocrit 37.2 % (36.0-46.0); Hemoglobin 12.6 g/dL (12.2-16.2); Mean Corpuscular Hemoglobin 31.5 pg (28.0-32.0); Mean Corpuscular Volume 93.3 fL (80.0-100.0)
[2025-01-07 06:41] LABS: Alanine Aminotransferase 15 U/L (7-40); Albumin 3.7 g/dL (3.2-4.8); Alkaline Phosphatase 86 U/L (46-116); Anion Gap 9 (5-15); BUN/Creatinine Ratio 15.3 (10.0-20.0); Blood Urea Nitrogen 13 mg/dL (9-23); Calcium 9.1 mg/dL (8.7-10.4); Carbon Dioxide 28 mmol/L (20-31); Chloride 104 mmol/L (98-107); Glucose 96 mg/dL (74-106); Potassium 3.6 mmol/L (3.5-5.1); Sodium 141 mmol/L (136-145); Total Protein 6.4 g/dL (5.7-8.2)
[2025-01-07 06:42] LABS: Bilirubin, Total 0.3 mg/dL (0.2-1.0)
[2025-01-07 08:25] LABS: Total Cells Counted 100.0 (100)
--- NOTE | 2025-01-07 18:02 | DVHPN2 ---
Subjective Patient complaining of shortness of breath. Also complaining of yellowish phlegm . Changes from previous H/P or p: No Changes Eyes: No Pain, No Vision change, No Conjunctivae inflammation, No Eyelid inflammation, No Other, No Redness ENT: No Ear pain, No Ear discharge, No Nose pain, No Nose discharge, No Nose congestion, No Mouth pain, No Mouth swelling, No Throat pain, No Throat swelling, No Other Cardiovascular: No Chest Pain, No Palpitations, No Orthopnea, No Paroxysmal Noc. Dyspnea, No Edema, No Lt Headedness, No Other Respiratory: No Cough, No Dry; Shortness of breath; No SOB with excertion, No Wheezing, No Hemoptysis, No Pleuritic Pain, No Sputum, No Other Gastrointestinal: No Nausea, No Vomiting, No Abdominal Pain, No Diarrhea, No Constipation, No Melena, No Hematochezia, No Other Genitourinary: No Dysuria, No Frequency, No Incontinence, No Hematuria, No Retention, No Other Musculoskeletal: No other, No neck pain, No shoulder pain, No arm pain, No back pain, No hand pain, No leg pain, No foot pain Skin: No Rash, No Lesions, No Jaundice, No Bruising, No Other Objective Vitals Vital Signs Date Time Temp Pulse Resp B/P (MAP) Pulse Ox O2 Delivery O2 Flow Rate FiO2 01/07/25 17:00 98.8 73 18 146/65 (92) 95 98.8 01/07/25 14:51 Nasal Cannula 2.0 01/07/25 14:51 28 Intake/Output Intake and Output 01/07/25 07:00 Intake Total 914 ml Balance 914 ml Intake Oral 864 ml IV Total 50 ml # Voids 5 Exam HEENT pupils are reactive Neck is supple CV is S1-S2 regular rate and rhythm Respiratory diminished breath sound bases GI positive bowel sounds Extremities no pedal edema [employer] no motor deficit Medications Current Medications Medications Dose Ordered Sig/Kai Route Start Time Stop Time Status Last Admin Dose Admin Aspirin 81 mg DAILY PO 01/06/25 10:00 01/07/25 09:26 81 MG Albuterol 2.5 mg Q4HPRN PRN NEB 01/06/25 00:45 01/07/25 14:51 2.5 MG Ipratropium [place] 0.5 mg Q4HPRN PRN NEB 01/06/25 00:45 01/07/25 14:51 0.5 MG Hydralazine HCl 10 mg Q6HP PRN IV 01/06/25 00:45 01/06/25 06:07 10 MG Sodium Chloride 10 ml Q8HR IV 01/06/25 06:00 01/07/25 04:49 10 ML Acetaminophen/ Hydrocodone Bitart 1 tab Q4HP PRN PO 01/06/25 00:45 01/07/25 00:55 1 TAB Ondansetron HCl 4 mg Q4HP PRN IV 01/06/25 00:45 Docusate Sodium 100 mg BIDPRN PRN PO 01/06/25 00:45 Acetaminophen 650 mg Q6HP PRN PO 01/06/25 00:45 Nitroglycerin 0.4 mg Q5MINP PRN SL 01/06/25 01:00 Morphine Sulfate 2 mg Q30M PRN IV 01/06/25 01:00 Ceftriaxone Sodium 50 ml @ 100 mls/hr DAILY@2100 IV 01/06/25 21:00 01/06/25 20:23 100 MLS/HR Laboratory Results Laboratory Tests 01/07/25 05:27 Chemistry Test 01/07/25 05:27 Albumin 3.7 g/dL (3.2-4.8) Calcium Level 9.1 mg/dL (8.7-10.4) Total Protein 6.4 g/dL (5.7-8.2) LFT Test 01/07/25 05:27 Alanine Aminotransferase (ALT) 15 U/L (7-40) Alkaline Phosphatase 86 U/L (46-116) Aspartate Amino Transferase (AST) 20 U/L (13-40) Total Bilirubin 0.3 mg/dL (0.2-1.0) Urinalysis Test 01/06/25 22:15 Urine Color Yellow (Yellow) Urine Clarity Clear (Clear) Urine pH 6.0 (5.0-9.0) Urine Specific [place] 1.033 (1.001-1.035) Urine Protein Negative (Negative) Urine Ketones Negative (Negative) Urine Blood Negative /uL (Negative) Urine Nitrite Negative (Negative) Urine Bilirubin Negative (Negative) Urine Urobilinogen Normal mg/dL (Negative) Urine Leukocyte Esterase Negative /uL (Negative) Urine RBC 1 /hpf (0 - 4) Urine Microscopic WBC 4 /HPF (0-5) Urine Squamous Epithelial Cells Few /hpf (<5) Urine Bacteria None seen /hpf (None Seen) Urine Mucus Few (None Seen) Urine Glucose Normal mg/dL (Normal) Assessment/Plan Assessment/Plan 84-year-old female with known history of hypertension, previous history of CVA presented to the hospital with increasing shortness of breath and yellowish phlegm found to have next 1. Acute hypoxic respiratory failure 2. Acute bronchitis 3. Fluid overload with CT evidence, we will get 2D echo cardiology consultation next 4. Hypertension 5. Previous cystocele -sputum for Gram stain and culture, 2D echo, cardiology consultation, add azithromycin, we will assess for home oxygen requirement upon discharge. Plan discussed with: Patient My Orders Orders - JACOBO CORONEL MD Procedure Category Date Status Time * Cardiology Consult CONS 01/07/25 Transmitted 17:58 Respiratory Culture NAVEED 01/07/25 Logged W/ Gs 17:59 Azithromycin 500mg/ PHA 01/07/25 Verified 250ml (Zithromax 50 18:00 Date of Service: Jan 07, 2025 Billing Provider: JACOBO CORONEL MD Common Visit Codes: [id number] INP/OBS CARE(HIGH) JACOBO CORONEL MD Jan 07, 2025 18:02
[2025-01-07] MEDS: AZITHROMYCIN 500MG/ 250ML 250 ML IV SCH (18:51)
[2025-01-08] VITALS (12 sets, daily range): BP systolic 116–162; BP diastolic 69–91; PULSE 65–87; RESP 16–18; TEMP 97.6–98.9; O2SAT 92–99
[2025-01-08] MEDS: LISINOPRIL 5 MG TAB PO SCH (10:00)
--- NOTE | 2025-01-08 11:00 | DVHSR ---
APPROVED REPORT EXAM: Two-dimensional and M-mode echocardiogram with Doppler and color Doppler. Blood Pressure: 139/84 mmHg INDICATION SOB DIMENSIONS LVDd 3.9 (3.8-5.7cm) LA (2D) 3.4 (1.9-4.0cm) Aortic Root 2.7 (2.0-3.7cm) LVDs 2.8 (2.5-4.0cm) LA (MM) (1.9-4.0cm) Aortic Cusp Exc 1.6 (1.5-2.0cm) EF (%) 55.0 (55-70%) Rt. Atrium 3.0 (1.9-4.0cm) Asc. Aorta cm IVSd 1.1 (0.7-1.1cm) RV (D) (1.8-2.4cm) PWd 1.1 (0.7-1.1cm) Mitral Valve Mitral Mitral Stenosis E wave 0.90m/s MV Mean GR. mmHg A wave 1.40m/s MV Peak GR. mmHg E/A ratio 0.6 2D MVA cm2 Aortic Valve Aortic Valve Aortic Stenosis V1 1.00m/s AO Mean GR. 4mmHg V2 1.30m/s AO Peak GR. 7mmHg LVOT Diameter 2.1 (1.8-2.4cm) Doppler MICHAEL 2.66cm2 AI P 1/2 Time 485.63ms Pulmonic Valve V2 0.80m/s Conclusion EF >55% MILD AV SCLEROSIS MID AI
--- NOTE | 2025-01-08 11:28 | DVHCONRES ---
Date Seen: Jan 08, 2025 Resident Creating Document: RODOLFOIVISJerilynKEATON RESIDENT Referring Physician Dr Gregg CASTILLO Reason for Consultation Shortness of breath History of Present Illness Amie is a 84 y o female with PMH of HTN and CVA presents with difficulty breathing and phlegm buildup that has been progressively worsening over the past 3-4 weeks. She reports that her symptoms have been "really hard-heavy" and have been "building up" since her move from [place] at the end of June, ultimately becoming "overpowering." She experiences significant difficulty breathing due to phlegm accumulation that she can feel building up. She denies being on home oxygen. She reports chest pain only when coughing, which causes pain in her ribs and back. She is able to walk without difficulty and can perform household activities, though she notes being "not real steady." She denies any history of lung conditions, emphysema, or asthma. PMH: As above PSH: Tonsillectomy, left hip surgery, sleep apnea surgery Family history: Noncontributory Social Historyb- Living Situation: Recently relocated from [place] at the end of June, denies smoking, alcohol and other drug abuse Medications: Aspirin 81 mg, lisinopril 10 mg Review of Systems Respiratory: Positive for difficulty breathing and phlegm buildup. Musculoskeletal: Positive for rib pain and back pain with coughing. Family History: Patient reports no known family medical history. Allergies: Coded Allergies: Sulfa Antibiotics (Verified Allergy, Unknown, 01/05/25) Home Meds Reported Medications Lisinopril (Lisinopril) 10 Mg Tab, 10 MG PO HS for 30 Days, MG 01/06/25 Aspirin (Aspir-Low) 81 Mg Tab, 81 MG PO DAILY for 30 Days, MG 01/06/25 Discontinued Reported Medications Lisinopril (Lisinopril) Pow, XX, POW 01/06/25 Current Medications Current Medications Medications (Trade) Dose Ordered Sig/Kai Route PRN Reason Start Time Stop Time Status Last Admin Azithromycin 250 ml @ 125 mls/hr DAILY IV 01/07/25 18:00 01/08/25 10:44 Amlodipine Besylate (Norvasc Tablet) 10 mg DAILY PO 01/08/25 10:00 01/08/25 10:45 Lisinopril (Zestril Tablet) 10 mg DAILY PO 01/08/25 10:00 Vital Signs Vital Signs Date Time Temp Pulse Resp B/P (MAP) Pulse Ox O2 Delivery O2 Flow Rate FiO2 01/08/25 10:45 153/72 01/08/25 08:51 80 16 93 01/08/25 08:51 98.0 98.0 01/08/25 08:42 Room Air* 0 21 Labs/Diagnostic Data Labs Test 01/08/25 10:58 01/07/25 05:27 01/06/25 22:15 01/06/25 03:36 Range/Units White Blood Count 8.7 4.4-10.8 10^3/uL Red Blood Count 3.99 L 4.0-5.20 10^6/uL Hemoglobin 12.6 12.2-16.2 g/dL Hematocrit 37.2 36.0-46.0 % Mean Corpuscular Volume 93.3 80.0-100.0 fL Mean Corpuscular Hemoglobin 31.5 28.0-32.0 pg Mean Corpuscular Hemoglobin Concent 33.8 32.0-36.0 g/dL Red Cell Distribution Width 12.9 11.8-14.3 % Platelet Count 284 140-450 10^3/uL Mean Platelet Volume 7.6 6.9-10.8 fL Neutrophils (%) (Auto) 37.0-80.0 % Lymphocytes (%) (Auto) 10.0-50.0 % Monocytes (%) (Auto) 0.0-12.0 % Eosinophils (%) (Auto) 0.0-7.0 % Basophils (%) (Auto) 0.0-2.0 % Neutrophils # (Auto) 1.6-8.6 10 ^3/uL Lymphocytes # (Auto) 0.4-5.4 10 ^3/uL Monocytes # (Auto) 0-1.3 10 ^3/uL Differential Total Cells Counted 100.0 100 Neutrophils % (Manual) 42 37.0-80.0 Band Neutrophils % (Manual) 1 Lymphocytes % (Manual) 17 10.0-50.0 Monocytes % (Manual) 4 0-12 Eosinophils % (Manual) 36 H 0-7 Basophils % (Manual) 0 0.0-2.0 Metamyelocytes % (manual) 0 Myelocytes % (Manual) 0 Promyelocytes % (Manual) 0 Blast Cells % (Manual) 0 Reactive Lymphocytes 0 Platelet Estimate Adequate Sodium Level 141 136-145 mmol/L Potassium Level 3.6 3.5-5.1 mmol/L Chloride Level 104 98-107 mmol/L Carbon Dioxide Level 28 20-31 mmol/L Anion Gap 9 5-15 Blood Urea Nitrogen 13 9-23 mg/dL Creatinine 0.85 0.550-1.02 mg/dL Glomerular Filtration Rate Calc 68 >90 mL/min BUN/Creatinine Ratio 15.3 10.0-20.0 Serum Glucose 96 74-106 mg/dL Calcium Level 9.1 8.7-10.4 mg/dL Total Bilirubin 0.3 0.2-1.0 mg/dL Aspartate Amino Transferase (AST) 20 13-40 U/L Alanine Aminotransferase (ALT) 15 7-40 U/L Alkaline Phosphatase 86 46-116 U/L Total Protein 6.4 5.7-8.2 g/dL Albumin 3.7 3.2-4.8 g/dL Urine Color Yellow Yellow Urine Clarity Clear Clear Urine pH 6.0 5.0-9.0 Urine Specific [place] 1.033 1.001-1.035 Urine Protein Negative Negative Urine Ketones Negative Negative Urine Blood Negative Negative /uL Urine Nitrite Negative Negative Urine Bilirubin Negative Negative Urine Urobilinogen Normal Negative mg/dL Urine Leukocyte Esterase Negative Negative /uL Urine RBC 1 0 - 4 /hpf Urine Microscopic WBC 4 0-5 /HPF Urine Squamous Epithelial Cells Few <5 /hpf Urine Bacteria None seen None Seen /hpf Urine Mucus Few None Seen Urine Glucose Normal Normal mg/dL Eosinophils # (Auto) 2.0 H 0-0.8 10 ^3/uL Basophils # (Auto) 0.1 0-0.2 10 ^3/uL Nucleated Red Blood Cells 0.1 % Test 01/05/25 22:32 01/05/25 21:52 01/05/25 21:10 Range/Units Influenza Type A Antigen Negative Negative Influenza Type B Antigen Negative Negative SARS-CoV-2 Antigen (Rapid) Negative NEGATIVE Troponin I High Sensitivity 3 L </=34 ng/L D-Dimer, Quantitative 1.15 H 0.0-0.49 mg/L FEU Lactic Acid Level 0.8 0.4-2.0 mmol/L B-Type Natriuretic Peptide 35.86 0-100 pg/mL Assessment Ruled out structural heart disease Hypertensive urgency Acute hypoxic respiratory failure likely due to acute bronchitis HX of CVA Plan/Recommendation We will continue with the following plan/recommendations (Dr. Bedoya): Echocardiogram Conclusion- EF >55%, MILD AV SCLEROSIS, MID AI Troponins BNP, troponins are wnl EKG, no significant ST changes Monitor blood pressure continuously DVT prophylaxis Recommended breathing treatments Rest of management as per primary team Discussed with Dr. Bedoya. We will sign off. Thank you for consulting us, please call for any queries. Plan discussed with: Patient Date of Service: Jan 08, 2025 Billing Provider: TAMIKO SORIANO MD Common Visit Codes: [id number] CARE 30-74 MIN ERICH REYNOLDS RESIDENT Jan 08, 2025 11:28
[2025-01-08 11:55] LABS: Triglycerides 125.0 mg/dL (< 150)
[2025-01-08 11:56] LABS: Magnesium 2.2 mg/dL (1.6-2.6)
[2025-01-08 11:57] LABS: Cholesterol 149.0 mg/dL (< 200); HDL Cholesterol 48.0 mg/dL (40-59)
--- NOTE | 2025-01-08 12:40 | DVHPN2 ---
Progress Note - Dictate Date Seen: Jan 08, 2025 Medical Necessity Reason Pt with a Central, PICC or Fol: No Subjective PT WITH SOB PRODUCTIVE COUGH BNP NORMAL TROPONIN NEGATIVE ECHO EF>55% vital signs Vital Sign Date Time Temp Pulse Resp B/P (MAP) Pulse Ox O2 Delivery O2 Flow Rate FiO2 01/08/25 10:45 153/72 01/08/25 10:00 Nasal Cannula 2.0 01/08/25 10:00 28 01/08/25 08:51 80 16 93 01/08/25 08:51 98.0 98.0 Total Intake and Output 01/07/25 01/07/25 01/08/25 14:59 22:59 06:59 Intake Total 360 ml 740 ml Balance 360 ml 740 ml medications Current Medications Medications Dose Ordered Sig/Kai Route Start Time Stop Time Status Last Admin Dose Admin Aspirin 81 mg DAILY PO 01/06/25 10:00 01/08/25 10:45 81 MG Albuterol 2.5 mg Q4HPRN PRN NEB 01/06/25 00:45 01/08/25 08:41 2.5 MG Ipratropium [place] 0.5 mg Q4HPRN PRN NEB 01/06/25 00:45 01/08/25 08:41 0.5 MG Hydralazine HCl 10 mg Q6HP PRN IV 01/06/25 00:45 01/06/25 06:07 10 MG Sodium Chloride 10 ml Q8HR IV 01/06/25 06:00 01/08/25 05:08 10 ML Acetaminophen/ Hydrocodone Bitart 1 tab Q4HP PRN PO 01/06/25 00:45 01/07/25 20:29 1 TAB Ondansetron HCl 4 mg Q4HP PRN IV 01/06/25 00:45 Docusate Sodium 100 mg BIDPRN PRN PO 01/06/25 00:45 Acetaminophen 650 mg Q6HP PRN PO 01/06/25 00:45 Nitroglycerin 0.4 mg Q5MINP PRN SL 01/06/25 01:00 Morphine Sulfate 2 mg Q30M PRN IV 01/06/25 01:00 Ceftriaxone Sodium 50 ml @ 100 mls/hr DAILY@2100 IV 01/06/25 21:00 01/07/25 20:23 100 MLS/HR Azithromycin 250 ml @ 125 mls/hr DAILY IV 01/07/25 18:00 01/08/25 10:44 125 MLS/HR Amlodipine Besylate 10 mg DAILY PO 01/08/25 10:00 01/08/25 10:45 10 MG Lisinopril 10 mg DAILY PO 01/08/25 10:00 laboratory and microbiology Laboratory Tests 01/07/25 05:27 Test 01/07/25 05:27 Range/Units Serum Glucose 96 74-106 mg/dL Problem List SOB PRODUCTIVE COUGH BNP NORMAL TROPONIN NEGATIVE ECHO EF>55% Assessment/Plan NON CARDIAC SOB TRACHEOBRONCHITIS INHALER ABX Plan discussed with: Patient TAMIKO SORIANO MD Jan 08, 2025 12:40
--- NOTE | 2025-01-08 16:48 | DVHPN2 ---
Subjective Patient complaining of shortness of breath. Also complaining of yellowish phlegm med status is getting better. Changes from previous H/P or p: No Changes Eyes: No Pain, No Vision change, No Conjunctivae inflammation, No Eyelid inflammation, No Other, No Redness ENT: No Ear pain, No Ear discharge, No Nose pain, No Nose discharge, No Nose congestion, No Mouth pain, No Mouth swelling, No Throat pain, No Throat swelling, No Other Cardiovascular: No Chest Pain, No Palpitations, No Orthopnea, No Paroxysmal Noc. Dyspnea, No Edema, No Lt Headedness, No Other Respiratory: No Cough, No Dry; Shortness of breath; No SOB with excertion, No Wheezing, No Hemoptysis, No Pleuritic Pain, No Sputum, No Other Gastrointestinal: No Nausea, No Vomiting, No Abdominal Pain, No Diarrhea, No Constipation, No Melena, No Hematochezia, No Other Genitourinary: No Dysuria, No Frequency, No Incontinence, No Hematuria, No Retention, No Other Musculoskeletal: No other, No neck pain, No shoulder pain, No arm pain, No back pain, No hand pain, No leg pain, No foot pain Skin: No Rash, No Lesions, No Jaundice, No Bruising, No Other Objective Vitals Vital Signs Date Time Temp Pulse Resp B/P (MAP) Pulse Ox O2 Delivery O2 Flow Rate FiO2 01/08/25 16:33 97.6 87 18 146/78 (100) 96 97.6 01/08/25 10:00 Nasal Cannula 2.0 01/08/25 10:00 28 Intake/Output Intake and Output 01/08/25 07:00 Intake Total 1100 ml Balance 1100 ml Intake Oral 1100 ml # Voids 7 Exam HEENT pupils are reactive Neck is supple CV is S1-S2 regular rate and rhythm Respiratory diminished breath sound bases GI positive bowel sounds Extremities no pedal edema [employer]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 Medications Current Medications Medications Dose Ordered Sig/Kai Route Start Time Stop Time Status Last Admin Dose Admin Aspirin 81 mg DAILY PO 01/06/25 10:00 01/08/25 10:45 81 MG Albuterol 2.5 mg Q4HPRN PRN NEB 01/06/25 00:45 01/08/25 08:41 2.5 MG Ipratropium [place] 0.5 mg Q4HPRN PRN NEB 01/06/25 00:45 01/08/25 08:41 0.5 MG Hydralazine HCl 10 mg Q6HP PRN IV 01/06/25 00:45 01/06/25 06:07 10 MG Sodium Chloride 10 ml Q8HR IV 01/06/25 06:00 01/08/25 13:01 10 ML Acetaminophen/ Hydrocodone Bitart 1 tab Q4HP PRN PO 01/06/25 00:45 01/07/25 20:29 1 TAB Ondansetron HCl 4 mg Q4HP PRN IV 01/06/25 00:45 Docusate Sodium 100 mg BIDPRN PRN PO 01/06/25 00:45 Acetaminophen 650 mg Q6HP PRN PO 01/06/25 00:45 Nitroglycerin 0.4 mg Q5MINP PRN SL 01/06/25 01:00 Morphine Sulfate 2 mg Q30M PRN IV 01/06/25 01:00 Ceftriaxone Sodium 50 ml @ 100 mls/hr DAILY@2100 IV 01/06/25 21:00 01/07/25 20:23 100 MLS/HR Azithromycin 250 ml @ 125 mls/hr DAILY IV 01/07/25 18:00 01/08/25 10:44 125 MLS/HR Amlodipine Besylate 10 mg DAILY PO 01/08/25 10:00 01/08/25 10:45 10 MG Lisinopril 10 mg DAILY PO 01/08/25 10:00 Guaifenesin 200 mg Q4HP PRN PO 01/08/25 12:45 01/08/25 12:58 200 MG Albuterol 2.[address] [facility] 01/08/25 18:00 Ipratropium [place] 0.[address] [facility] 01/08/25 18:00 Laboratory Results Laboratory Tests 01/07/25 05:27 Chemistry Test 01/08/25 10:58 Magnesium Level 2.2 mg/dL (1.6-2.6) Lipid panel Test 01/08/25 10:58 Cholesterol Level 149 mg/dL (< 200) HDL Cholesterol 48 mg/dL (40-59) Triglycerides Level 125 mg/dL (< 150) HgA1c, TSH Test 01/08/25 10:58 Thyroid Stimulating Hormone (TSH) 1.89 uIU/mL (0.55-4.78) Urinalysis Test 01/06/25 22:15 Urine Color Yellow (Yellow) Urine Clarity Clear (Clear) Urine pH 6.0 (5.0-9.0) Urine Specific [place] 1.033 (1.001-1.035) Urine Protein Negative (Negative) Urine Ketones Negative (Negative) Urine Blood Negative /uL (Negative) Urine Nitrite Negative (Negative) Urine Bilirubin Negative (Negative) Urine Urobilinogen Normal mg/dL (Negative) Urine Leukocyte Esterase Negative /uL (Negative) Urine RBC 1 /hpf (0 - 4) Urine Microscopic WBC 4 /HPF (0-5) Urine Squamous Epithelial Cells Few /hpf (<5) Urine Bacteria None seen /hpf (None Seen) Urine Mucus Few (None Seen) Urine Glucose Normal mg/dL (Normal) Microbiology Microbiology Date/Time Source Procedure Growth Status 01/07/25 19:20 Sputum Gram Stain - Final Resulted 01/07/25 19:20 Sputum Respiratory Culture - Preliminary Resulted Assessment/Plan Assessment/Plan 84-year-old female with known history of hypertension, previous history of CVA presented to the hospital with increasing shortness of breath and yellowish phlegm found to have next 1. Acute hypoxic respiratory failure 2. Acute bronchitis 3. Fluid overload with CT evidence, we will get 2D echo cardiology consultation 4. Hypertension -continue IV antibiotics -sputum for Gram stain and culture, 2D echo, cardiology consultation, add azithromycin, we will assess for home oxygen requirement upon discharge. Plan discussed with: Patient My Orders Orders - JACOBO CORONEL MD Procedure Category Date Status Time Respiratory Culture NAVEED 01/07/25 In Process W/ Gs 17:59 Azithromycin 500mg/ PHA 01/07/25 In Process 250ml (Zithromax 50 18:00 * Cardiology Consult CONS 01/08/25 Transmitted 05:25 Guaifenesin Plain PHA 01/08/25 In Process Liquid (Robitussin [place] 12:45 Albuterol Medneb PHA 01/08/25 In Process (Ventolin Medneb) 18:00 Ipratropium Medneb PHA 01/08/25 In Process (Atrovent Medneb) 18:00 Date of Service: Jan 08, 2025 Billing Provider: JACOBO CORONEL MD Common Visit Codes: [id number] INP/OBS CARE(HIGH) JACOBO CORONEL MD Jan 08, 2025 16:48
[2025-01-08] MEDS: ALBUTEROL SULF 2.5 MG/0.5ML(0.5%) NEB SOLN NEB SCH (19:55)
[2025-01-08] MEDS: IPRATROPIUM BROM 0.5 MG/2.5ML INH SOL NEB SCH (19:55)
[2025-01-09] VITALS (11 sets, daily range): BP systolic 121–148; BP diastolic 62–76; PULSE 63–113; RESP 15–91; TEMP 98.3–98.7; O2SAT 91–100
[2025-01-09] MEDS: DOCUSATE SOD 100 MG CAP PO PRN (09:45)
--- NOTE | 2025-01-09 13:32 | DVHPN2 ---
Progress Note - Dictate Date Seen: Jan 09, 2025 Medical Necessity Reason Pt with a Central, PICC or Fol: No Subjective PT WITH SOB PRODUCTIVE COUGH BNP NORMAL TROPONIN NEGATIVE ECHO EF>55% vital signs Vital Sign Date Time Temp Pulse Resp B/P (MAP) Pulse Ox O2 Delivery O2 Flow Rate FiO2 01/09/25 12:43 98.6 113 20 131/73 (92) 91 98.6 01/09/25 11:27 Room Air 0.0 01/09/25 11:27 21 Total Intake and Output 01/08/25 01/08/25 01/09/25 15:00 23:00 07:00 Intake Total 250 ml 960 ml 800 ml Balance 250 ml 960 ml 800 ml medications Current Medications Medications Dose Ordered Sig/Kai Route Start Time Stop Time Status Last Admin Dose Admin Aspirin 81 mg DAILY PO 01/06/25 10:00 01/09/25 09:46 81 MG Albuterol 2.5 mg Q4HPRN PRN NEB 01/06/25 00:45 01/08/25 08:41 2.5 MG Ipratropium [place] 0.5 mg Q4HPRN PRN NEB 01/06/25 00:45 01/08/25 08:41 0.5 MG Hydralazine HCl 10 mg Q6HP PRN IV 01/06/25 00:45 01/06/25 06:07 10 MG Sodium Chloride 10 ml Q8HR IV 01/06/25 06:00 01/09/25 06:00 10 ML Acetaminophen/ Hydrocodone Bitart 1 tab Q4HP PRN PO 01/06/25 00:45 01/08/25 23:52 1 TAB Ondansetron HCl 4 mg Q4HP PRN IV 01/06/25 00:45 Docusate Sodium 100 mg BIDPRN PRN PO 01/06/25 00:45 01/09/25 09:45 100 MG Acetaminophen 650 mg Q6HP PRN PO 01/06/25 00:45 Nitroglycerin 0.4 mg Q5MINP PRN SL 01/06/25 01:00 Morphine Sulfate 2 mg Q30M PRN IV 01/06/25 01:00 Ceftriaxone Sodium 50 ml @ 100 mls/hr DAILY@2100 IV 01/06/25 21:00 01/08/25 21:12 100 MLS/HR Azithromycin 250 ml @ 125 mls/hr DAILY IV 01/07/25 18:00 01/09/25 09:46 125 MLS/HR Amlodipine Besylate 10 mg DAILY PO 01/08/25 10:00 01/09/25 09:46 10 MG Lisinopril 10 mg DAILY PO 01/08/25 10:00 Guaifenesin 200 mg Q4HP PRN PO 01/08/25 12:45 01/08/25 12:58 200 MG Albuterol 2.5 mg Q6HWA NEB 01/08/25 18:00 01/09/25 11:27 2.5 MG Ipratropium [place] 0.5 mg Q6HWA NEB 01/08/25 18:00 01/09/25 11:27 0.5 MG laboratory and microbiology Laboratory Tests 01/07/25 05:27 Test 01/07/25 05:27 Range/Units Serum Glucose 96 74-106 mg/dL Problem List SOB PRODUCTIVE COUGH BNP NORMAL TROPONIN NEGATIVE ECHO EF>55% Assessment/Plan NON CARDIAC SOB TRACHEOBRONCHITIS INHALER ABX Plan discussed with: Patient TAMIKO SORIANO MD Jan 09, 2025 13:32
[2025-01-09] MEDS ORDERED: AMLO1TAB23 PO (16:37)
[2025-01-09] MEDS ORDERED: AUG875T PO (16:37)
[2025-01-09] MEDS ORDERED: ALB5IS NEB (16:37)
--- NOTE | 2025-01-09 16:38 | DVHDS2 ---
Discharge Summary Date of Admission Jan 06, 2025 at 00:50 Date of Discharge: Jan 09, 2025 Labs/Diagnostic Data: Laboratory Results Test 01/08/25 10:58 01/07/25 05:27 01/06/25 22:15 01/06/25 03:36 Magnesium Level 2.2 mg/dL (1.6-2.6) Triglycerides Level 125 mg/dL (< 150) Cholesterol Level 149 mg/dL (< 200) LDL Cholesterol 85 mg/dL (< 100) HDL Cholesterol 48 mg/dL (40-59) Thyroid Stimulating Hormone (TSH) 1.89 uIU/mL (0.55-4.78) White Blood Count 8.7 10^3/uL (4.4-10.8) Red Blood Count 3.99 10^6/uL (4.0-5.20) Hemoglobin 12.6 g/dL (12.2-16.2) Hematocrit 37.2 % (36.0-46.0) Mean Corpuscular Volume 93.3 fL (80.0-100.0) Mean Corpuscular Hemoglobin 31.5 pg (28.0-32.0) Mean Corpuscular Hemoglobin Concent 33.8 g/dL (32.0-36.0) Red Cell Distribution Width 12.9 % (11.8-14.3) Platelet Count 284 10^3/uL (140-450) Mean Platelet Volume 7.6 fL (6.9-10.8) Neutrophils (%) (Auto) % (37.0-80.0) Lymphocytes (%) (Auto) % (10.0-50.0) Monocytes (%) (Auto) % (0.0-12.0) Eosinophils (%) (Auto) % (0.0-7.0) Basophils (%) (Auto) % (0.0-2.0) Neutrophils # (Auto) 10 ^3/uL (1.6-8.6) Lymphocytes # (Auto) 10 ^3/uL (0.4-5.4) Monocytes # (Auto) 10 ^3/uL (0-1.3) Differential Total Cells Counted 100.0 (100) Neutrophils % (Manual) 42 (37.0-80.0) Band Neutrophils % (Manual) 1 Lymphocytes % (Manual) 17 (10.0-50.0) Monocytes % (Manual) 4 (0-12) Eosinophils % (Manual) 36 (0-7) Basophils % (Manual) 0 (0.0-2.0) Metamyelocytes % (manual) 0 Myelocytes % (Manual) 0 Promyelocytes % (Manual) 0 Blast Cells % (Manual) 0 Reactive Lymphocytes 0 Platelet Estimate Adequate Sodium Level 141 mmol/L (136-145) Potassium Level 3.6 mmol/L (3.5-5.1) Chloride Level 104 mmol/L (98-107) Carbon Dioxide Level 28 mmol/L (20-31) Anion Gap 9 (5-15) Blood Urea Nitrogen 13 mg/dL (9-23) Creatinine 0.85 mg/dL (0.550-1.02) Glomerular Filtration Rate Calc 68 mL/min (>90) BUN/Creatinine Ratio 15.3 (10.0-20.0) Serum Glucose 96 mg/dL (74-106) Calcium Level 9.1 mg/dL (8.7-10.4) Total Bilirubin 0.3 mg/dL (0.2-1.0) Aspartate Amino Transferase (AST) 20 U/L (13-40) Alanine Aminotransferase (ALT) 15 U/L (7-40) Alkaline Phosphatase 86 U/L (46-116) Total Protein 6.4 g/dL (5.7-8.2) Albumin 3.7 g/dL (3.2-4.8) Urine Color Yellow (Yellow) Urine Clarity Clear (Clear) Urine pH 6.0 (5.0-9.0) Urine Specific [place] 1.033 (1.001-1.035) Urine Protein Negative (Negative) Urine Ketones Negative (Negative) Urine Blood Negative /uL (Negative) Urine Nitrite Negative (Negative) Urine Bilirubin Negative (Negative) Urine Urobilinogen Normal mg/dL (Negative) Urine Leukocyte Esterase Negative /uL (Negative) Urine RBC 1 /hpf (0 - 4) Urine Microscopic WBC 4 /HPF (0-5) Urine Squamous Epithelial Cells Few /hpf (<5) Urine Bacteria None seen /hpf (None Seen) Urine Mucus Few (None Seen) Urine Glucose Normal mg/dL (Normal) Eosinophils # (Auto) 2.0 10 ^3/uL (0-0.8) Basophils # (Auto) 0.1 10 ^3/uL (0-0.2) Nucleated Red Blood Cells 0.1 % Test 01/05/25 22:32 01/05/25 21:52 01/05/25 21:10 Influenza Type A Antigen Negative (Negative) Influenza Type B Antigen Negative (Negative) SARS-CoV-2 Antigen (Rapid) Negative (NEGATIVE) Troponin I High Sensitivity 3 ng/L (</=34) D-Dimer, Quantitative 1.15 mg/L FEU (0.0-0.49) Lactic Acid Level 0.8 mmol/L (0.4-2.0) B-Type Natriuretic Peptide 35.86 pg/mL (0-100) Other Laboratory Tests 01/07/25 05:27 Brief Hx & Hospital Course: 84-year-old female with known history of hypertension, previous history of CVA presented to the hospital with increasing shortness of breath and yellowish phlegm found to have hypoxic respiratory failure secondary to acute bronchitis. Patient was also having fluid overload with a CT evidence. Echo was done. Patient is being discharged under stable condition on p.o. antibiotics. During the hospital stay patient was being seen by Cardiology as well. Condition at Discharge: Stable Final Diagnosis/Problems List 84-year-old female with known history of hypertension, previous history of CVA presented to the hospital with increasing shortness of breath and yellowish phlegm found to have next 1. Acute hypoxic respiratory failure 2. Acute bronchitis 3. Fluid overload with CT evidence, we will get 2D echo cardiology consultation 4. Hypertension Discharge Disposition: Home SNF Discharge Will this Physician continue t: No Discharge Instruct/Medications Diet: Cardiac 2g Na,low cholest Activity: No Restrictions, As Tolerated Follow Up/Referral: Please follow up with the PCP in 1-2 weeks Medications: Medication as prescribed and reconciled. New Medications: Amlodipine Besylate (Amlodipine Besylate) 10 Mg Tab 1 TAB PO DAILY, #30 TAB 5 Refills Amoxicillin & Pot Clavulanate (Augmentin Tablet) 875 Mg Tb 875 MG PO BID for 7 Days, #14 TAB Albuterol Sulfate (Ventolin) 2.5 Mg/0.5 Ml Nb 2.5 MG NEB Q4HPRN PRN, #1 INH Scheduled Amlodipine Besylate (Amlodipine Besylate), 1 TAB PO DAILY Amoxicillin & Pot Clavulanate (Augmentin Tablet), 875 MG PO BID Aspirin (Aspir-Low), 81 MG PO DAILY, (Reported) Lisinopril (Lisinopril), 10 MG PO HS, (Reported) Scheduled PRN Albuterol Sulfate (Ventolin), 2.5 MG NEB Q4HPRN PRN Discontinued Medications Lisinopril (Lisinopril), Unknown Dose XX, (Reported) Discharge Statement: "Patient was advised to return to the ER or call 911 if any headaches, dizziness, shortness of breath, chest pain, abdominal pain, bleeding, fevers, or worsening of medical condition. Patient was counseled about treatment plan, medications, possible side effects, patientverbalized understanding. All questions were answered to the best of my ability. This discharge took greater then 30 minutes in planning, reviewing documentation, counseling the patient, and discussing with other team members." ASSESSMENT ASSESSMENT Assessment 84-year-old female with known history of hypertension, previous history of CVA presented to the hospital with increasing shortness of breath and yellowish phlegm found to have next 1. Acute hypoxic respiratory failure 2. Acute bronchitis 3. Fluid overload with CT evidence, we will get 2D echo cardiology consultation 4. Hypertension Date of Service: Jan 09, 2025 Billing Provider: JACOBO CORONEL MD Common Visit Codes: [id number] DISCH DAY >30min JACOBO CORONEL MD Jan 09, 2025 16:38
== END 2025-01-09 17:55 | disposition home or self-care (01) | DRG 189 ==
LOC: EDBD 20:39 → ER 20:39 → OVERFLOW 01-06 00:50 → TELE-EAST 01-06 05:37
PROVIDERS: ADMIT Internal Medicine; ATTEND Internal Medicine
DX: J96.01 Acute respiratory failure with hypoxia (principal); I16.0 Hypertensive urgency; I69.351 Hemiplegia and hemiparesis following cerebral infarction affecting right dominant side; I10 Essential (primary) hypertension; J20.9 Acute bronchitis, unspecified; Z20.822 Contact with and (suspected) exposure to COVID-19; J06.9 Acute upper respiratory infection, unspecified; E87.70 Fluid overload, unspecified; Z79.899 Other long term (current) drug therapy; Z79.82 Long term (current) use of aspirin
CPT/HCPCS: 36415; 71045; 71275; 80053; 80061; 81001; 83605; 83735; 83880; 84443; 84484; 85007; 85025; 85027; 85379; 87070; 87205; 87426; 87804; 93005; 93306; 94640; 96365; 99291; G0378

== ENCOUNTER 2025-01-17 15:01 | Emergency (ER) | payer OTHER ==
[~2025-01-17] VITALS: Ht 157.5 cm; Wt 68.2 kg
[~2025-01-17 15:01] MED LIST: ALB5IS NEB; AMLO1TAB23 PO; ASPI-543 PO; AUG875T PO; LISI10TA34 PO
--- NOTE | 2025-01-17 15:36 | ECG ---
[facility] Test Date: 2025-01-17 Test Time: 15:09:27 Pat Name: CAIN JONES Department: ED Room: Gender: F Dredge Hand: : 1940 Requested By: ELZBIETA DOVE Order Number: [id number] Reading MD: Jhony Jane Measurements Intervals [place] Rate: 88 P: 54 NM: 150 QRS: 26 QRSD: 83 T: 66 QT: 378 QTc: 458 Interpretive Statements Sinus rhythm Borderline T abnormalities, lateral leads Electronically Signed On 01-17-2025 18:02:23 PST by Jhony Jane Please click the below link to view image of tracing.
--- NOTE | 2025-01-17 15:53 | ED.PDOC ---
SOB-HPI HPI Comments 84 y/o F, with PMHx of HTN presents to the ED for CC of persistent cough, shortness of breath over the past couple of weeks. Patient reports, recently being Dx with pneumonia and finishing prescribed medications however, has felt no relief since, being discharged from the hospital. Was admitted here from 01/06 to 01/09. Was treated for bronchitis. CT angiography of the chest only showed mild fluid overloaded state. Patient reports persistence of congestion. Denies any current fevers. Patient denies chest pain, fever, chills, palpitations, or fatigue. No other symptoms or modifying factors are present at this time. Chief Complaint: Shortness of Breath Time Seen by MD: 15:50 Reviewed notes: Nurses Notes, Medications, Allergies Information Source: Patient Mode of Arrival: EMS Severity: Moderate Timing: Days Duration: Since onset Context: At Rest History of: None Prehospital treatment: None Modifying Factors: Nothing Associated Signs and Symptoms: Cough Past Medical History PAST MEDICAL HISTORY: CVA, HTN Surgical History: Tonsillectomy ENGAGEMENT DIRECTOR History: Denies all ENGAGEMENT DIRECTOR Hx Family History Family History: Reviewed,noncontributory to illness Social History Smoker: Non-Smoker Alcohol: Denies ETOH Use Drugs: Denies Drug Use Lives In: Home Constitutional: denies: chills, diaphoresis, fatigue, fever, malaise, sweats, weakness, others EENTM: denies: blurred vision, double vision, ear bleeding, ear discharge, ear drainage, ear pain, ear ringing, eye pain, eye redness, hearing loss, mouth pain, mouth swelling, nasal discharge, nose bleeding, nose congestion, nose pain, photophobia, tearing, throat pain, throat swelling, voice changes, others Respiratory: reports: cough, shortness of breath; denies: hemoptysis, orthopnea, SOB at rest, SOB with excertion, stridor, wheezing, others Cardiovascular: denies: chest pain, dizzy spells, diaphoresis, Dyspnea on exertion, edema, irregular heart beat, left arm pain, lightheadedness, palpitations, PND, syncope, others Gastrointestinal: denies: abdomen distended, abdominal pain, blood streaked bowels, constipated, diarrhea, dysphagia, difficulty swallowing, hematemesis, me kuldeep, nausea, poor appetite, poor fluid intake, rectal bleeding, rectal pain, vomiting, others Genitourinary: denies: abnormal vagina bleeding, burning, dyspareunia, dysuria, flank pain, frequency, hematuria, incontinence, pain, , vagina discharge, urgency, others Neurological: denies: dizziness, fainting, headache, left sided numbness, left sided weakness, numbness, paresthesia, pre-existing deficit, right sided numbness, right sided weakness, seizure, speech problems, tingling, tremors, weakness, others Musculoskeletal: denies: back pain, gout, joint pain, joint swelling, muscle pain, muscle stiffness, neck pain, others Integumetry: denies: bruises, change in color, change in hair/nails, dryness, laceration, lesions, lumps, rash, wounds, others Allergic/Immunocompromised: denies: Difficulty Healing, Frequent Infections, Hives, Itching, others Hematologic/Lymphatic: denies: anemia, blood clots, easy bleeding, easy bruising, swollen glands, others Endocrine: denies: excessive hunger, excessive sweating, excessive thirst, excessive urination, flushing, intolerance to cold, intolerance to heat, unexplained weight gain, unexplained weight loss, others Psychiatric: denies: anxiety, bipolar disorder, depression, hopeless, panic disorder, schizophrenia, sleepless, suicidal, others All Other Systems: Reviewed and Negative Physical Exam General Appearance: No Apparent Distress, Normal HEENT: Normal ENT Inspection, Pharynx Normal Neck: Full Range of Motion, Non-Tender, Normal, Normal Inspection Respiratory: Chest Non-Tender, Lungs Clear, No Accessory Muscle Use, No Respiratory Distress, Normal Breath Sounds Cardiovascular: No Edema, No Murmur, No Gallop, Normal Peripheral Pulses, Regular Rate/Rhythm Breast Exam: Deferred Gastrointestinal: No Organomegaly, Non Tender, No Pulsatile Mass, Normal Bowel Sounds, Soft Genitalia: Deferred Pelvic: Deferred Rectal: Deferred Extremities: No calf tenderness, Normal capillary refill, Normal inspection, Normal range of motion, Non-tender, No pedal edema Musculoskeletal : Apperance: Normal Neurologic: Alert, [id number] administrator II-XII nml as Tested, No Motor Deficits, Normal Affect, Normal Mood, No Sensory Deficits Cerebellar Function: Normal Reflexes: Normal Skin: Dry, Normal Color, Warm Lymphatic: No Adenopathy EKG EKG : Pulse Rate (adult): 88 Magazine: Normal Cardiac Rhythm: NSR Block: None ST: Normal Was a procedure done? Was a procedure done?: No Differential Dx Differential Diagnosis: Bronchitis, Pneumonia, Sinusitis, Pharyngitis, URI X-Ray, Labs, Meds, VS Vital Signs Date Time Temp Pulse Resp B/P (MAP) Pulse Ox O2 Delivery O2 Flow Rate FiO2 01/17/25 18:43 97.9 78 18 120/52 (74) 97 97.9 01/17/25 18:43 78 18 97 Room Air 01/17/25 15:09 88 01/17/25 15:01 98.9 102 16 140/70 100 98.9 Lab Test 01/17/25 16:04 Range/Units White Blood Count 10.0 4.4-10.8 10^3/uL Red Blood Count 4.57 4.0-5.20 10^6/uL Hemoglobin 14.3 12.2-16.2 g/dL Hematocrit 42.4 36.0-46.0 % Mean Corpuscular Volume 92.7 80.0-100.0 fL Mean Corpuscular Hemoglobin 31.2 28.0-32.0 pg Mean Corpuscular Hemoglobin Concent 33.6 32.0-36.0 g/dL Red Cell Distribution Width 13.0 11.8-14.3 % Platelet Count 332 140-450 10^3/uL Mean Platelet Volume 7.4 6.9-10.8 fL Neutrophils (%) (Auto) 78.1 37.0-80.0 % Lymphocytes (%) (Auto) 9.0 L 10.0-50.0 % Monocytes (%) (Auto) 6.9 0.0-12.0 % Eosinophils (%) (Auto) 4.9 0.0-7.0 % Basophils (%) (Auto) 1.1 0.0-2.0 % Neutrophils # (Auto) 7.8 1.6-8.6 10 ^3/uL Lymphocytes # (Auto) 0.9 0.4-5.4 10 ^3/uL Monocytes # (Auto) 0.7 0-1.3 10 ^3/uL Eosinophils # (Auto) 0.5 0-0.8 10 ^3/uL Basophils # (Auto) 0.1 0-0.2 10 ^3/uL Nucleated Red Blood Cells 0.1 % Sodium Level 141 136-145 mmol/L Potassium Level 3.3 L 3.5-5.1 mmol/L Chloride Level 103 98-107 mmol/L Carbon Dioxide Level 28 20-31 mmol/L Anion Gap 10 5-15 Blood Urea Nitrogen 13 9-23 mg/dL Creatinine 0.80 0.550-1.02 mg/dL Glomerular Filtration Rate Calc 74 >90 mL/min BUN/Creatinine Ratio 16.3 10.0-20.0 Serum Glucose 136 H 74-106 mg/dL Calcium Level 9.6 8.7-10.4 mg/dL Troponin I High Sensitivity 5 </=34 ng/L B-Type Natriuretic Peptide 35.53 0-100 pg/mL Current Medications Medications (Trade) Dose Ordered Sig/Kai Route Start Time Stop Time Status Last Admin Guaifenesin (Robitussin Plain Liquid) 200 mg ONCE ONCE PO 01/17/25 16:00 01/17/25 16:01 DC 01/17/25 16:55 Potassium Bicarbonate (Klor-Con/Ef) 50 meq ONCE ONCE PO 01/17/25 17:00 01/17/25 17:01 DC 01/17/25 17:45 [place] [address] Ph: [phone] DIAGNOSTIC IMAGING Diagnostic Imaging Report : [id number] Signed PATIENT: CAIN JONES ACCT: [id number] UNIT: [id number] : 1940 LOC: ER ROOM / BED: / AGE / SEX: 84 / F ADM STATUS: REG ER SERVICE 1548 ORDERING PHYSICIAN: ELZBIETA DOVE MD PROCEDURE(s): CXR1 - CHEST XRAY 1 VIEW REASON: SOB, eval for resolution of recent PNA ORDER NUMBER(s): [id number], ACCESSION NUMBER(s): [id number] CHEST RADIOGRAPH Indication: SOB, eval for resolution of recent PNA Technique: Single frontal view of the chest was obtained. Comparison: CT CT ANGIO CHEST CONTRAST on DOS: 01/05/25 Findings: Mild pulmonary vascular congestion. No significant pleural effusion. No pneumothorax. Stable cardiomediastinal silhouette. IMPRESSION: Mild pulmonary vascular congestion. ATED BY: CRUZ JONES MD DICTATED DATE/TIME: 01/17/251630 SIGNED BY: CRUZ JONES MD SIGNED DATE/TIME: 01/17/25 163 CC: Time of 1ST Reevaluation: 16:20 Reevaluation 1ST: Unchanged Time of 2ND Reevaluation: 18:00 Reevaluation 2ND: Improved Patient Education/Counseling: Diagnosis, Treatment Family Education/Counseling: No Family Present SEPSIS Sepsis Screen Date sepsis recognized/suspect: Jan 17, 2025 Time Sepsis recognized/suspect: 1501 Recent Procedure: No On Antibiotic Therapy: No Respiratory Rate >20: No Heart Rate >90: Yes Temp<36 C (96.8 F) or >38.3 C: No SBP <90 or MAP <65 mmHG: No New Acute Mental Status Change: No Is the patient on CPAP, BIPAP,: No Physician Orders Electrocardigram (01/17/25 15:34) Chest Xray 1 View (01/17/25 15:48) Vital Signs Date Time Temp Pulse Resp B/P (MAP) Pulse Ox O2 Delivery O2 Flow Rate FiO2 01/17/25 18:43 97.9 78 18 120/52 (74) 97 97.9 01/17/25 18:43 78 18 97 Room Air 01/17/25 15:09 88 01/17/25 15:01 98.9 102 16 140/70 100 98.9 Laboratory Tests Test 01/17/25 16:04 White Blood Count 10.0 10^3/uL (4.4-10.8) Medications Medications Dose Ordered Sig/Kai Route Start Time Stop Time Status Last Admin Dose Admin Guaifenesin 200 mg ONCE ONCE PO 01/17/25 16:00 01/17/25 16:01 DC 01/17/25 16:55 Potassium Bicarbonate 50 meq ONCE ONCE PO 01/17/25 17:00 01/17/25 17:01 DC 01/17/25 17:45 Departure 1 Departure Time of Disposition: 18:00 (84 y/o F, with PMHx of HTN presents to the ED for CC of persistent cough, shortness of breath over the past couple of weeks. Patient just completed a course of antibiotics that was previously prescribed to her, however, reporting persistence of symptoms. Upon my assessment she has normal work of breathing, clear lungs. Was given a breathing treatment shortly before arrival. This is likely the cause of the patient's mild tachycardia upon arrival. Given persistent symptoms a repeat chest x-ray was performed which shows no evidence of any focal consolidation to suggest a bacterial pneumonia. Patient reports shortness of breath, no known history of heart failure. BNP today is within normal limits. Chest x-ray shows mild pulmonary vascular congestion stable in comparison to prior imaging. CBC with no evidence of critical leukocytosis. Metabolic panel was notable for mild hypokalemia, likely related to recent albuterol use. Reporting shortness of breath, not having any actual chest pain, however, EKG was performed sinus rhythm, troponin within normal limits. Does not seem consistent with ACS. Patient was given oral guaifenesin for persistent congestion. Was given oral potassium repletion for mild hypokalemia. She was observed for several hours, upon reassessment vital signs remained stable. Stable for discharge further outpatient symptomatic management. Advised on eating a diet rich in potassium over the upcoming days.) Impression: Primary Impression: Cough Additional Impressions: Nasal congestion Hypokalemia Shortness of breath Disposition: 01 HOME / SELF CARE / HOMELESS Condition: Stable Additional Instructions: Your chest x-ray today shows no evidence of pneumonia. Your potassium level was slightly low, likely related to recent albuterol use. You may eat bananas which will increase your potassium. Discharged With: Self Critical Care Note Critical Care Time?: No Stability Stability form required: No Heart Score Heart Score: Heart Score Response (Comments) Value History N/A 0 EKG N/A 0 Age N/A 0 Risk Factors N/A 0 Troponin N/A 0 Total 0 I personally scribed for ELZBIETA DOVE MD ([email or web address]) on 01/17/25 at 15:53. Electronically submitted by Brynn Madera ([email or web address] I personally scribed for ELZBIETA DOVE MD ([email or web address]) on 01/17/25 at 18:29. Electronically submitted by Brynn Madera ([employer] ELZBIETA DOVE MD Jan 17, 2025 15:53
[2025-01-17 16:28] LABS: Hematocrit 42.4 % (36.0-46.0); Hemoglobin 14.3 g/dL (12.2-16.2); Mean Corpuscular Hemoglobin 31.2 pg (28.0-32.0); Mean Corpuscular Volume 92.7 fL (80.0-100.0); Nucleated Red Blood Cells % 0.1 %
--- NOTE | 2025-01-17 16:33 | DVH ---
CHEST RADIOGRAPH Indication: SOB, eval for resolution of recent PNA Technique: Single frontal view of the chest was obtained. Comparison: CT CT ANGIO CHEST CONTRAST on DOS: 01/05/25 Findings: Mild pulmonary vascular congestion. No significant pleural effusion. No pneumothorax. Stable cardiomediastinal silhouette. IMPRESSION: Mild pulmonary vascular congestion.
[2025-01-17 16:39] LABS: Chloride 103 mmol/L (98-107); Sodium 141 mmol/L (136-145)
[2025-01-17 16:40] LABS: Anion Gap 10 (5-15); Calcium 9.6 mg/dL (8.7-10.4); Carbon Dioxide 28 mmol/L (20-31); Potassium 3.3 mmol/L (3.5-5.1)
[2025-01-17 16:45] LABS: BUN/Creatinine Ratio 16.3 (10.0-20.0); Blood Urea Nitrogen 13 mg/dL (9-23)
[2025-01-17 16:47] LABS: Glucose 136 mg/dL (74-106)
[2025-01-17] MEDS: POTASSIUM EFFERVESENT TAB 25 MEQ PO ONE (17:45)
[2025-01-17 18:43] VITALS: BP 120/52; RESP 18; TEMP 97.9; O2SAT 97
[2025-01-17 19:08] VITALS: PULSE 88
== END 2025-01-17 16:43 | disposition home or self-care (01) ==
LOC: EDBD 15:01 → ER 15:01
DX: R05.9 Cough, unspecified (principal); R09.81 Nasal congestion; E87.6 Hypokalemia; R06.02 Shortness of breath; I10 Essential (primary) hypertension; Z86.73 Personal history of transient ischemic attack (TIA), and cerebral infarction without residual deficits; Z90.89 Acquired absence of other organs
CPT/HCPCS: 36415; 71045; 80048; 83880; 84484; 85025; 93005